=== PATIENT | male | born 2005 | race African-American/Black ===

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

== ENCOUNTER 2023-07-09 20:46 | Emergency (ER) | payer SELFPAY ==
[2023-07-09] MEDS ORDERED: BACITRACIN ZINC OINT 1 PACKET TOP STA (20:57)
[2023-07-09] MEDS ORDERED: lidocaine 1% 20 ML MDV SUBQ ONE (20:57)
[2023-07-09] MEDS ORDERED: TETANUS/DIPHTHERIA/PERTUSSIS 0.5 ML SYRINGE IM ONE (20:58)
[2023-07-09] MEDS ORDERED: HYDROmorphone 1 MG/ML CARPUJECT IM STA (21:06)
[2023-07-09] MEDS ORDERED: cefTRIAXone 1 GM VIAL IM STA (21:52)
[2023-07-09] MEDS ORDERED: LIDOCAINE 1% 2 ML VIAL MC ONE (21:52)
--- NOTE | 2023-07-09 21:52 | ED Physician Documentation ---
History of Present Illness - Stated complaint Stated Complaint: L FINGERS LAC - Chief complaint Chief Complaint: Laceration - Additonal information Additional information: 17-year-old male here for evaluation of left hand finger laceration sustained when he was using a hedge tremor. Uncertain of last tetanus. He wrapped his index finger with a full roll of duct tape, completed the job and then came to the emergency department. He is right-hand dominant. Review of Systems Skin: reports: Laceration (s) PD PAST MEDICAL HISTORY - Past Medical History Cardiovascular: None Respiratory: None Neuro: None Endocrine/Autoimmune: None GI: None : None HEENT: None Psych: None Musculoskeletal: None Derm: None - Past Surgical History Past Surgical History: No HEENT: Myringotomy (tubes) - Present Medications Home Medications: Ambulatory Orders Medication Instructions Recorded Confirmed HYDROcod/ACETAM 5/325 [Petaluma 5/325] 1 tablet PO BID PRN #10 tablet 07/09/23 cephALEXin [Keflex] 500 mg PO Q6H #28 cap 07/09/23 - Allergies Allergies/Adverse Reactions: Allergies Allergy/AdvReac Type Severity Reaction Status Date / Time No Known Drug Allergies Allergy Verified 07/09/23 20:49 - Social History Does the pt smoke?: No Smoking Status: Never smoker Does the pt drink ETOH?: No Does the pt have substance abuse?: No - Immunizations Immunizations are current?: Yes - POLST Patient has POLST: No PD ED PE EXPANDED - Extremities Extremities: Left hand (Macerated laceration 2 cm left ring finger between MCP and PIP joint volar side preserved flexion extension.), Left finger(s) (Index finger with a vertical laceration through the tip extending into the nail measuring about 3 cm. Normal flexion extension at DIP joint.) Results - Vitals Vitals: Vital Signs - 24 hr 07/09/23 20:49 Temperature 36.5 C Heart Rate 100 Respiratory 16 Rate Blood Pressure 118/22 L O2 Saturation 98 Oxygen O2 Source Room air - Rads (name of study) left hand Relevant Findings:: EMP independent interpretation of test (No acute fractures or foreign bodies) Procedures - Laceration (location) left index finger Length in cm: 3.5 Wound type: Linear, Into subcut fat, Into muscle, Contaminated Neurovascular status: Sensory intact Tendon involvement: Tendon intact Anesthesia: Lidocaine 1% Wound preparation: Chlorhexadine, Irrigated copiously NS Skin layer closure: Nylon, Interrupted, Size #-0 - enter number (4), Sutures - enter # (7) Other: Patient tolerated well, No complications, Tetanus UTD left ring finger Length in cm: 3 Wound type: Irregular, Into subcut fat, Into muscle Neurovascular status: Sensory intact, Motor intact Tendon involvement: Tendon intact Anesthesia: Lidocaine 1% Wound preparation: Chlorhexadine, Irrigated copiously NS Skin layer closure: Nylon, Interrupted, Size #-0 - enter number (4), Sutures - enter # (4) Other: Patient tolerated well, Tetanus booster given PD Medical Decision Making - ED course Complexity details: reviewed results, d/w patient ED course: 17-year-old male here for evaluation of left hand fingers laceration sustained when using a hedge tremor. Tetanus was updated today. Index finger had a vertical incision through the tip that was closed with 7 interrupted sutures. He had preserved flexion extension at DIP joint with no evidence of tendon injury. The left ring finger had a macerated stellate laceration on the volar aspect between the MCP and PIP joint but again had preserved tendon function. This wound was closed with 4 sutures. Given the heavily contaminated wound he was given ceftriaxone here in the emergency department and will be discharged with 4 days of Keflex. And x-rays interpreted by myself did not show any evidence of finger fractures. The fingers were placed in extension splints. Advised to have sutures removed in 10 days time. Routine wound care in the usual emergent return precautions we re discussed. I am prescribing a short course of short-acting opioid pain medication for this patient. I have reviewed the patients [employer]EL[employer] and no concerning findings were noted. I have discussed that the opioids are for short term therapy only, and will not be refilled from the ED. Departure - Departure Disposition: 01 Home, Self Care Clinical Impression: Finger laceration Condition: Stable Record reviewed to determine appropriate education?: Yes Instructions: ED Laceration Hand Prescriptions: cephALEXin [Keflex] 500 mg PO Q6H #28 cap HYDROcod/ACETAM 5/325 [Petaluma 5/325] 1 tablet PO BID PRN #10 tablet PRN Reason: Pain Comments: We did close your wounds with a total of 11 sutures. These should be removed in about 10 days time. In 24 hours you can gently wash your hand with warm soap and water, pat dry then apply antibiotic ointment and a simple bandage. Because of the depth of these wounds it is important that you keep your fingers in the extension splints to interrupt movement and promote wound healing. The x-ray of your hand did not show any fractures. I sent a prescription for Keflex to the [facility] in [place]. Fill this and begin taking as directed as this wound does carry a higher risk of infection. Your tetanus was updated today and should be good for the next 7 to 10 years. If at any point you have concerns of infection, fevers, milky drainage please do not hesitate to return immediately to the ER. I am prescribing a short course of narcotic pain medication for you. These are potentially dangerous and addictive medications that should be used carefully. These medications may constipate you. Take an haqa-rrx-vwmpzdy stool softener (docusate) twice daily with plenty of water while taking these medications. If you go 24 hours without a bowel movement, take fhii-qaa-tyfjpfr miralax, per package instructions. Do not drink or drive while taking these medications. If you received narcotic or sedating medications while in the emergency department, do not drive for 24 hours. Store this medication in a safe, secure place and out of reach of children. It is a violation of federal law to give or sell this medication to another person or to use in a manner other than prescribed. The ED will not refill narcotic prescriptions, including prescriptions lost or stolen. To dispose of unwanted medications: 1. [facility] [address] [facility] in [place] has a medication drop box. They accept prescription medications (in pill form) Thursday through Thursday 9:00 a.m. to 5:00 p.m. 2. The [facility] accepts prescription medications (in pill form only) for disposal year round. Call for more information. 3. Contact the [facility] for the next [facility] sponsored prescription drug collection event. , [phone], or [phone]; Note that many narcotic pain relievers also contain Tylenol/acetaminophen. Please ensure that your total dose of acetaminophen from all sources does not exceed 3 g (3000 mg) per day.
[2023-07-09 22:54] VITALS: BP 153/99; O2SAT 100
--- NOTE | 2023-07-09 23:27 | XRAY Report ---
PROCEDURE: Finger(s) LT INDICATIONS: r/o fx after lac TECHNIQUE: AP hand, 2 additional views of the second and fourth digits acquired. COMPARISON: None. FINDINGS: Bones: No fractures or dislocations. No suspicious bony lesions. Soft tissues: No radiopaque foreign bodies. No suspicious soft tissue calcifications or masses. IMPRESSION: 1. No fractures or radiopaque foreign bodies. Reviewed by: Jose Green MD on 07/09/2023 11:25 PM PDT Approved by: Jose Green MD on 07/09/2023 11:25 PM PDT Station ID: [id number]
== END 2023-07-09 22:50 | disposition home or self-care (01) ==
LOC: ED 20:46
DX: S61.215A Laceration without foreign body of left ring finger without damage to nail, initial encounter (principal); W27.1XXA Contact with garden tool, initial encounter; Z23 Encounter for immunization
CPT/HCPCS: 12042; 12052; 73140; 90471; 90715; 96372; 99283; A9270; J1170